=== PATIENT | male | born 1955 | race African-American/Black ===

== ENCOUNTER → 2019-01-12 | Outpatient (CLI) | payer MEDICARE ==
[~2019-01-12] MED LIST: ALLO-2 PO; ALLOPURINOL PO; ALPR-429 PO; AMOX500T10 PO; ASPI81TA94 PO; ATOR-1 PO; ATOR40TA28 PO; CYCL-430 PO; ENAL-18 PO; ENALAPRIL PO; EZET10TA41 PO; FLU60VIA41 IM; GLUC-198 PO; METO-257 PO; METOPROLOL PO; MOD PO; NITR0.4T3 SL; OMEG-11 PO; PANT40TA65 PO; PNEU0.5D3 IM; ROBC PO; SERT-179 PO; SERT-181 PO; SERT-184 PO; SILD100T59 PO; VASOTEC; [UNRECOGNIZED DRUG - OTHER] PO
[2019-01-12 10:42] LABS: PLATELET COUNT, AUTOMATED 158 K/uL (150-450)
== END ==
LOC: LAB 10:19
PROVIDERS: ATTEND Internal Medicine
DX: I25.10 Atherosclerotic heart disease of native coronary artery without angina pectoris (principal); I10 Essential (primary) hypertension; Z00.00 Encounter for general adult medical examination without abnormal findings; E78.2 Mixed hyperlipidemia; Z12.5 Encounter for screening for malignant neoplasm of prostate
CPT/HCPCS: 36415; 84443; 84550; 85025; G0103; 82040; 82247; 82310; 82374; 82435; 82465; 82565; 82947; 83718; 84075; 84132; 84153; 84155; 84295; 84450; 84460; 84478; 84520